=== PATIENT | male | born 1980 | race African-American/Black ===

== ENCOUNTER 2016-10-04 10:16 | Day surgery (SDC) | payer MEDICARE, MEDICAID ==
[~2016-10-04] VITALS: Ht 177.8 cm; Wt 90.0 kg
[~2016-10-04 10:16] MED LIST: ACET-2178 PO; AMLO10TA4 PO; ASCO500C15 PO; BESI5DRO RIGHTEYE; BRIM15DR2 LEFTEYE; BROM3DRO RIGHTEYE; CINA30 PO; DIFL5DRO LEFTEYE; HYPO40SP LEFTEYE; LANTUSUD SUBCUT; LOPE2TAB26 PO; LOSA50TA3 PO; LOTE3.5O RIGHTEYE; NEPA1.7D OP; NEPVIT PO; POLY10DR3 LEFTEYE; PRED25PO13 OP; PROHEAL PO; SEVE800T PO; TIMO5DRO27 BOTHEYE; VIGAMX LEFTEYE; [UNRECOGNIZED DRUG - CODE] SUBCUT
[2016-10-04 11:11] LABS: BASOPHILS % 1.1 % (0.0-2.0); EOSINOPHILS % 2.2 % (0.0-5.0); HEMATOCRIT. 37.2 % (42.0-52.0); HEMOGLOBIN. 11.8 g/dL (14.0-18.0); LYMPHOCYTES % 15.4 % (20.0-50.0); MEAN CORPUSCULAR HEMOGLOBIN 28.6 pg (28.0-32.0); MEAN CORPUSCULAR HGB CONC 31.8 g/dL (31.0-37.0); MEAN PLATELET VOLUME 7.8 fl (7.4-10.4); MONOCYTES % 7.4 % (2.0-8.0); NEUTROPHILS % 73.9 % (40.0-76.0); PLATELET 265 x1000/uL (130-400); RED BLOOD CELL COUNT 4.13 mill/uL (4.7-6.1); RED CELL DISTRIBUTION WIDTH 16.7 % (11.6-14.6); WHITE BLOOD COUNT 13.1 x1000/uL (4.5-11.0)
[2016-10-04 11:19] LABS: PARTIAL THROMBOPLASTIN TIME 31.5 sec (24.0-34.0); PROTHROMBIN TIME 10.3 sec
[2016-10-04 11:22] LABS: CALCIUM 8.6 mg/dL (8.5-10.1)
[2016-10-04] MEDS ORDERED: SODIUM CHLORIDE 0.9% 500 ML IV ONE (11:55)
[2016-10-04] MEDS ORDERED: BACITRACIN ZINC 15GM TUBE TOP ONE (12:00)
[2016-10-04] MEDS ORDERED: GELATIN SPONGE,ABSORBABLE SZ 100 ONE (12:00)
[2016-10-04] MEDS ORDERED: BACITRACIN 50,000 UNITS/VIAL ONE (12:01)
[2016-10-04] MEDS ORDERED: THROMBIN (BOVINE) 5000 UNITS/VIAL TOP ONE (12:01)
[2016-10-04] MEDS ORDERED: NORMAL SALINE 0.9% 10 ML SYR ONE (12:01)
[2016-10-04] MEDS ORDERED: HEPARIN SODIUM 1,000 UNIT/1ML VIAL IV ONE ×3 (12:08→14:42)
[2016-10-04] MEDS ORDERED: BUPIVACAINE HCL/PF 0.5% (5MG/ML) 10ML ONE (12:09)
[2016-10-04] MEDS ORDERED: LIDOCAINE HCL 1% 20ML VIAL (Pyxis) INJ ONE ×2 (12:10→14:25)
[2016-10-04] MEDS ORDERED: ETOMIDATE 2MG/ML 10ML VIAL IV ONE (14:21)
[2016-10-04] MEDS ORDERED: MIDAZOLAM HCL 2 MG/2 ML VIAL ONE ×2 (14:22→14:25)
[2016-10-04] MEDS ORDERED: FENTANYL CITRATE/PF 50MCG/ML 2ML VIAL ONE (14:25)
[2016-10-04] MEDS ORDERED: PROPOFOL 200MG/20ML VIAL IV ONE (14:25)
[2016-10-04] MEDS ORDERED: ONDANSETRON HCL 4MG/2ML VIAL IV PRN (14:30)
[2016-10-04] MEDS ORDERED: HYDROMORPHONE HCL/PF 2MG/ML CPJ IV PRN (14:30)
[2016-10-04] MEDS ORDERED: CEFAZOLIN SODIUM 1000MG/VIAL ONE (14:37)
[2016-10-04] MEDS ORDERED: INSULIN REGULAR (HUMULIN R) 300UNITS/3ML ONE (14:53)
[2016-10-04] MEDS ORDERED: DEXTROSE 50% WATER 50ML SYRINGE IV ONE (14:56)
[2016-10-04] MEDS ORDERED: ONDANSETRON HCL 4MG/2ML VIAL ONE (14:58)
[2016-10-04] MEDS ORDERED: AMIN30LI2 PO (16:20)
[2016-10-04] MEDS ORDERED: LATA2.5D2 BOTHEYE (16:23)
== END 2016-10-04 18:30 ==
LOC: OR 10:16
PROVIDERS: ATTEND Surgery Vascular Surgery
DX: T82.868A Thrombosis due to vascular prosthetic devices, implants and grafts, initial encounter (principal); I12.9 Hypertensive chronic kidney disease with stage 1 through stage 4 chronic kidney disease, or unspecified chronic kidney disease; D68.69 Other thrombophilia; N18.6 End stage renal disease; E11.40 Type 2 diabetes mellitus with diabetic neuropathy, unspecified; I73.9 Peripheral vascular disease, unspecified; D64.9 Anemia, unspecified
CPT/HCPCS: 36415; 36831; 80048; 85025; 85610; 85730; 88304; 93005; A4216; C1884; J0690; J1644; J2250; J2405; J3010; J3490; J7040; J1815; J2704